=== PATIENT | female | born 1995 | race Two or more races ===

== ENCOUNTER 2024-10-09 15:13 | Emergency (ER) | payer MEDICAID, SELFPAY ==
[2024-10-09 15:14] VITALS: BMI 29.2
[2024-10-09 15:30] VITALS: BP 135/90; PULSE 87; RESP 17; TEMP 36.8; O2SAT 98
[2024-10-09] MEDS: IBUPROFEN TAB 400 MG TABLET 800 MG PO (16:24)
[2024-10-09] MEDS: HYDROcodone/APAP 7.5/325 TABLET 1 TAB PO (16:24)
--- NOTE | 2024-10-09 16:29 | EDNOTE_ITS ---
ED Dental RME/HPI General Chief complaint: Dental/Oral/Throat Stated complaint: TOOTHACHE X2D Time Seen by Provider: 10/09/24 15:35 Source: patient Arrival date/time: 10/09/24 15:13 29-year-old female presented to the emergency department with complaints of left upper dentition pain. Patient does states she has a dental cavity on the upper left jaw that has been causing her pain for the last 2 days. Denies fever, chills no abscess or swelling to left cheek. Mode of arrival: ambulatory Limitations: no limitations Related Data Home Medications ?Medication ?Instructions ?Recorded ?Confirmed vits no.[id number]-ferrous fum 1 tab PO QDAY 08/30/23 12/16/23 27 mg iron-folic acid 800 mcg tablet ( Vitamin) Previous Rx's ?Medication ?Instructions ?Recorded acetaminophen 300 mg-codeine 15 mg 1 tab PO Q12H PRN pain #14 tabs 12/18/23 tablet ibuprofen 600 mg tablet 600 mg PO TID #20 tabs 12/18/23 amoxicillin 500 mg tablet 500 mg PO BID 10 days #20 tabs 10/09/24 chlorhexidine gluconate 0.12 % 15 ml buccal BID 5 days #473 mL 10/09/24 mouthwash ibuprofen 800 mg tablet (IBU) 800 mg PO Q8H #20 tabs 10/09/24 Allergies Allergy/AdvReac Type Severity Reaction Status Date / Time No Known Allergies Allergy Verified 10/09/24 15:16 Review of Systems Review of Systems Systems Reviewed: All systems reviewed, normal except as documented Narrative Review of Systems: Gen: No fever, no chills, no weight loss EYES: No discharge, no visual changes, no pain HEENT: No ear pain, no congestion, no sore throat, +dental pain PULM: No shortness of breath, no cough, no congestion CV: No chest pain, no dyspnea on exertion, no palpitations GI: No nausea, no vomiting, no diarrhea, no pain, no constipation : No frequency, no urgency,? no dysuria Musc/skel: No joint pain, no back pain Skin: No rash? ED Exam General Limitations: Present no limitations General appearance: Present alert and in no apparent distress Head Head exam: Present atraumatic Eye Eye exam: Present normal appearance, PERRL and EOMI ENT ENT exam: Present normal oropharynx, mucous membranes moist and TM's normal bilaterally Expanded ENT Exam External ear exam: Present normal external inspection Mouth exam: Present normal external inspection Teeth exam: Present dental caries and dental tenderness # (#15) Throat exam: Present normal inspection Neck Neck exam: Present normal inspection, full ROM and trachea midline Chest Chest inspection: Present normal inspection and symmetric chest wall rise Respiratory Respiratory exam: Present normal lung sounds bilaterally Cardiovascular Cardiovascular exam: Present regular rate, normal rhythm and normal heart sounds Abdominal Exam Abdominal exam: Present soft and normal bowel sounds Extremities Exam Extremities exam: Present normal inspection and full ROM Back Exam Back exam: Present normal inspection and full ROM Neurological Exam Neurological exam: Present alert, oriented X3 and CN II-XII intact Psychiatric Psychiatric exam: Present normal affect and normal mood Skin Skin exam: Present warm, dry, intact and normal color Course Quality Measures none Orders Category Date Time Status HYDROcodone*/APAP 7.5/325 [[place]ark[place] 7.5/325] Med 10/09/24 15:46 Discontinued 1 tab PO X1 ONE Ibuprofen Tab [Motrin Tab] Med 10/09/24 15:46 Discontinued 800 mg PO X1 ONE Vital Signs Vital signs: Vital Signs Temperature 98.3 F 10/09/24 15:30 Pulse Rate 87 10/09/24 15:30 Respiratory Rate 17 10/09/24 15:30 Blood Pressure 135/90 H 10/09/24 15:30 Pulse Oximetry (%) 98 10/09/24 15:30 Oxygen Delivery Method Room Air 10/09/24 15:30 Dental / Oral MDM Narrative MDM Narrative:: Pain management in ED for clinical impression of dental pain due to dental caries Patient not immunosuppressed. No e/o tooth fracture, avulsion, or bleeding socket. No e/o RPA, [employer], Jose Guadalupe?s angina, periapical abscess. Rx Ibuprofen. Discharge home. Discussed return precautions for odontogenic infections and other dental pain emergencies. Advised to make an appointment with her dentist. Patient data External records reviewed:: [facility] previous records Clinical information provided by:: patient Social determinants that could affect healthcare access:: none Patient has the following chronic illnesses:: none How is presenting disease/condition affected by chronic disease/condition?: no chronic disease Evaluation data The following diagnostics were reviewed and interpreted by me:: other (specify) Lab and/or radiology exams considered but not ordered:: no Interpretation Summary: n/a Medications / Prescriptions Medications or Prescriptions considered but not ordered:: no Medication administrations:: Medication Administration History Discontinued Medications Hydrocodone Bitart/Acetaminophen (Hydrocodone/Apap 7.5/325 Tablet) 1 tab PO X1 ONE Stop: 10/09/24 15:47 Last Admin: 10/09/24 16:24 Dose: 1 tab Documented By: Ibuprofen (Ibuprofen Tab 400 Mg Tablet) 800 mg PO X1 ONE Stop: 10/09/24 15:47 Last Admin: 10/09/24 16:24 Dose: 800 mg Documented By: All medications administered and effective Consultations Consultation(s) initiated? (list below): No Diagnosis Dental Differential Diagnosis: gingival abscess, dental caries, toothache, dental abscess and fracture of tooth Most likely diagnosis given after review of the tests above:: Dental caries, dental pain Admission Indicated Admission indicated?: not indicated Admission Request Was there a request for admission?: No Disposition Plan Disposition Plan: Discharge Discharge Attestation Discharge Attestation: The patient and all family members were given an opportunity to ask questions and understood the discharge instructions. Discharge instructions specifically effects, indications for sooner follow up or return to the emergency department, and the expected course of current diagnosis. Patient condition: Stable Discharge Plan Plan Patient Disposition: HOME (Self Care) Patient condition on transfer: Stable Prescriptions/Referrals Prescriptions/Med Rec: New ibuprofen [IBU] 800 mg tablet 800 mg PO Q8H Qty: 20 0RF amoxicillin 500 mg tablet 500 mg PO BID 10 Days Qty: 20 0RF chlorhexidine gluconate 0.12 % mouthwash 15 ml buccal BID 5 Days Qty: 473 0RF Rx Instructions: 15ml swish/spit for 30 seconds and spit BID for 5 days No Action acetaminophen-codeine 300-15 mg tablet 1 tab PO Q12H PRN (Reason: pain) Qty: 14 0RF ibuprofen 600 mg tablet 600 mg PO TID Qty: 20 0RF Vitamin 27 mg iron- 800 mcg Tablet 1 tab PO QDAY Problem List Clinical Impression: Dental caries, Toothache Patient/Caregiver Discharge Instructions Discharge Activity: activity as tolerated Education Materials: ED Dental Pain, ED Dental Cavity Additional Instructions: - Please it is very important that you make an appointment with your dentist for follow-up care. -Start your antibiotics and other medication as directed. Follow-up with your primary doctor Return to the emergency department this any worsening symptoms any condition. Print Language: Nepali Stand Alone Forms: Sammie Award Info., Patient Portal Info Letter Attestation MD Attestation The patient was seen by the midlevel practitioner. I, the co-signing physician, was present during the entire ER visit. While I did not physically examine the patient, I was available for consultation as needed.
== END 2024-10-09 17:13 | disposition home or self-care (01) ==
PROVIDERS: Emergency Provider Emergency Medicine
DX: K02.9 Dental caries, unspecified (principal)
CPT/HCPCS: 99283; A9270